=== PATIENT | female | born 1995 | race African-American/Black ===

== ENCOUNTER 2016-11-07 10:59 | Emergency (ER) | payer OTHER ==
[2016-11-07] MEDS ORDERED: GENTAMICIN 0.3% OPHTH SOL 5 ML BTL As Ordered ONE (11:53)
[2016-11-07] MEDS ORDERED: AUGMENTIN 875 MG TAB As Ordered ONE (11:53)
[2016-11-07] MEDS ORDERED: IBUPROFEN 800 MG TAB As Ordered ONE (11:54)
--- NOTE | 2016-11-07 12:19 | EDDOCDS ---
Physician Documentation [facility] Name: Margo Burnham Age: 20 yrs Sex: Female : 1995 Arrival Date: 11/07/2016 Time: 10:59 Bed TR3 Private MD: Disposition: 11/07/16 12:03 Discharged to Home/Self Care. Impression: Acute sinusitis, Hordeolum internum left upper eyelid. - Condition is Stable. - Discharge Instructions: Stye, Sinusitis, [id number]. - Prescriptions for Augmentin 875- 125 mg Oral Tablet - take 1 tablet by ORAL route every 12 hours for 10 days; 20 tablet. Ibuprofen 800 mg Oral Tablet - take 1 tablet by ORAL route every 8 hours As needed take with food; 30 tablet. Claritin 10 mg Oral Tablet - take 1 tablet by ORAL route once daily As needed; 30 tablet. Gentamicin 0.3 % Ophthalmic Drops - instill 2 drops by OPHTHALMIC route every 4 hours Apply to Left eye; 1 bottle. Mucinex 600 mg - take 1 tablet by ORAL route 2 times per day; 30 tablet. - Medication Reconciliation, Local Pharmacy Hours form. - Follow up: [facility] [place]; When: 1 - 2 days; Reason: Recheck today's complaints, Continuance of care. Follow up: Emergency Department; Reason: Worsening of conditions. - Problem is new. - Symptoms have improved. Historical: - Allergies: no known allergies; - Home Meds: 1. none - PMHx: none; - PSHx: none; - Social history: Smoking status: Patient states was never smoker of tobacco. No barriers to communication noted, The patient speaks fluent [place], Speaks appropriately for age. - Family history: Not pertinent. - : The pt / caregiver states he / she is not on anticoagulants. Home medication list is obtained from the patient. - Exposure Risk Screening:: None identified. 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 2 in. (157.48 cm); Pain 0/10; 11:01 Body Mass Index 23.78 (58.97 kg, 157.48 cm) jlf MDM: 11:52 Gentamicin Drops 0.3 % 2 drps Ophthalmic once; Left eye please ordered. ef1 11:52 Amoxicillin-Clavulanate 875 mg 1 tabs PO once ordered. ef1 11:52 Ibuprofen 800 mg PO once ordered. ef1 12:05 Financial registration complete. mpb 12:06 [facility] Payment Agreement was scanned into [employer] and attached to record. mpb Administered Medications: 11:55 Drug: Amoxicillin-Clavulanate 1 tabs [amoxicillin 875 mg-potassium clavulanate 125 mg kr3 tablet (1 tabs)] Route: PO; 11:56 Drug: Ibuprofen 800 mg [ibuprofen 800 mg tablet (1 tabs)] Route: PO; kr3 12:17 Drug: Gentamicin 2 drps [gentamicin 0.3 % eye drops (2 drps)] Route: Ophthalmic; Site: kr3 left eye; Signatures: Yenni Montague RN RN srm Svetlana Herrera RN RN kr3 Kathy Jones, PA-Piper PA-C ef1 Horacio Vincent, Félix Reg mpb The chart was reviewed and I authenticate all verbal orders and agree with the evaluation and treatment provided.Attachments: 12:06 [facility] Payment Agreement mpb MTDD
--- NOTE | 2016-11-07 12:19 | EDDOCDS ---
Nurse's Notes [facility] Name: Margo Burnham Age: 20 yrs Sex: Female : 1995 Arrival Date: 11/07/2016 Time: 10:59 Bed TR3 Private MD: Diagnosis: Acute sinusitis;Hordeolum internum left upper eyelid Presentation: 11/07 11:02 Presenting complaint: Patient states: swelling to left eye started yesterday. has a srm little pain to it. no vision changes. no change in foods, detergent, or soaps. just got in from the field. Mechanism of Injury: No Mechanism of Injury. The patient denies any loss of vision. Adult Sepsis Screening: The patient does not have new or worsening altered mentation. Patient's respiratory rate is less than 22. Systolic blood pressure is greater than 100. Patient has a qSOFA score of 0- Negative Sepsis Screen. Suicide/Homicide risk assessment- the patient denies having any suicidal and/or homicidal ideations and does not present with any other emotional, behavioral or mental health complaints. 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 Transition of care: patient was not received from another setting of care. 11:02 Acuity: MICAH Level 4 srm 11:02 Method Of Arrival: Walkin/Carried/Asstd srm Triage Assessment: 11:04 General: Appears in no apparent distress, Behavior is appropriate for age, cooperative. srm Pain: Pain currently is 4 out of 10 on a pain scale. Pt Declines HIV testing. EENT: swelling to left eye lid. 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 none - PMHx: none; - PSHx: none; - Social history: Smoking status: Patient states was never smoker of tobacco. No barriers to communication noted, The patient speaks fluent Luxembourgish, Speaks appropriately for age. - Family history: Not pertinent. - : The pt / caregiver states he / she is not on anticoagulants. Home medication list is obtained from the patient. - Exposure Risk Screening:: None identified. Screenin:18 Screening information is obtained from the patient. Fall risk: No risks identified. kr3 Assistance ADL's: requires no assistance with activities of daily living. Abuse/DV Screen: The patient / caregiver reports he/she is: not in a situation that causes fear, pain or injury. Nutritional screening: No deficits noted. Advance Directives: Currently, there is no health care proxy. home support is adequate. Assessment: 12:18 General: Appears in no apparent distress, comfortable, Behavior is appropriate for age, kr3 cooperative. Respiratory: Respiratory effort is even, unlabored. Derm: Skin is normal. Vital Signs: 11:01 BP 116 / 55; Pulse 79; Resp 18; Temp 97.2; Pulse Ox 100% ; Weight 58.97 kg; Height 5 [facility] ft. 2 in. (157.48 cm); Pain 0/10; 11:01 Body Mass Index 23.78 (58.97 kg, 157.48 cm) [facility] Vitals: 11:01 Log In Time: November 07, 2016 at 10:56. [facility] ED Course: 11:00 Patient visited by Mejia Lau PCA. jlf 11:00 Patient moved to Waiting jl 11:02 Patient visited by Mejia Lau PCA. jlf 11:02 Patient moved to Pre RCE jlf 11:04 Triage Initiated srm 11:36 Patient moved to Triage 3 sew 11:38 Kathy Jones [facility]-C [facility]. ef1 11:38 Siena Fuentes MD is Attending Physician. ef1 11:43 Patient visited by Kathy Jones PA-C. ef1 11:54 Patient name changed from Dove\S\\S\Chacha\S\ to Dove\S\ \S\Chacha. EDMS 11:58 Patient name changed from Dove\S\ \S\Chacha\S\ to Dove\S\Samedrianas\S\Chacha. EDMS 12:03 Rosey Ramirez [facility] is Referral Physician. ef1 12:06 [facility] Payment Agreement was scanned into [employer] and attached to record. mpb 12:18 Patient moved to TR3 jf3 12:18 No IV's were initiated during this patient's visit. No procedures done that require kr3 assistance. 12:19 The patient / caregiver is instructed regarding the plan of care and ED course. kr3 Administered Medications: 11:55 Drug: Amoxicillin-Clavulanate 1 tabs [amoxicillin 875 mg-potassium clavulanate 125 mg kr3 tablet (1 tabs)] Route: PO; 11:56 Drug: Ibuprofen 800 mg [ibuprofen 800 mg tablet (1 tabs)] Route: PO; kr3 12:17 Drug: Gentamicin 2 drps [gentamicin 0.3 % eye drops (2 drps)] Route: Ophthalmic; Site: kr3 left eye; Order Results: There are currently no results for this order. Outcome: 12:03 Discharge ordered by Provider. ef1 12:18 Discharge Assessment: patient administered narcotics - no. The following High Risk kr3 Discharge criteria are identified: None. Discharged to home ambulatory. Condition: stable. Discharge instructions given to patient, Instructed on discharge instructions, follow up and referral plans. medication usage, Demonstrated understanding of instructions, medications, Pt was receptive of discharge instructions/ teaching. Prescriptions given X 4. No special radiology studies were completed. Property sent home with patient. 12:19 Patient left the ED. kr3 Signatures: Dispatcher [employer] EDMS Yenni Montague, RN RN [facility] Svetlana HerreraRN RN kr3 Kathy Jones, PA-C PA-C ef1 Siena Meza Jordain, SYBIL DIRECTOR CARDIOLOGY Jorge Aguilar,MAEGAN RN jf3 Horacio Vincent, Reg Reg mpb MTDD
--- NOTE | 2016-11-09 13:19 | EDDOCDS ---
Nurse's Notes [facility] Name: Margo Burnham Age: 20 yrs Sex: Female : 1995 Arrival Date: 11/07/2016 Time: 10:59 Bed TR3 Private MD: Diagnosis: Acute sinusitis;Hordeolum internum left upper eyelid Presentation: 11/07 11:02 Presenting complaint: Patient states: swelling to left eye started yesterday. has a srm little pain to it. no vision changes. no change in foods, detergent, or soaps. just got in from the field. Mechanism of Injury: No Mechanism of Injury. The patient denies any loss of vision. Adult Sepsis Screening: The patient does not have new or worsening altered mentation. Patient's respiratory rate is less than 22. Systolic blood pressure is greater than 100. Patient has a qSOFA score of 0- Negative Sepsis Screen. Suicide/Homicide risk assessment- the patient denies having any suicidal and/or homicidal ideations and does not present with any other emotional, behavioral or mental health complaints. 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 Transition of care: patient was not received from another setting of care. 11:02 Acuity: MICAH Level 4 srm 11:02 Method Of Arrival: Walkin/Carried/Asstd srm Triage Assessment: 11:04 General: Appears in no apparent distress, Behavior is appropriate for age, cooperative. srm Pain: Pain currently is 4 out of 10 on a pain scale. Pt Declines HIV testing. EENT: swelling to left eye lid. 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 none - PMHx: none; - PSHx: none; - Social history: Smoking status: Patient states was never smoker of tobacco. No barriers to communication noted, The patient speaks fluent [place], Speaks appropriately for age. - Family history: Not pertinent. - : The pt / caregiver states he / she is not on anticoagulants. Home medication list is obtained from the patient. - Exposure Risk Screening:: None identified. Screenin:18 Screening information is obtained from the patient. Fall risk: No risks identified. kr3 Assistance ADL's: requires no assistance with activities of daily living. Abuse/DV Screen: The patient / caregiver reports he/she is: not in a situation that causes fear, pain or injury. Nutritional screening: No deficits noted. Advance Directives: Currently, there is no health care proxy. home support is adequate. Assessment: 12:18 General: Appears in no apparent distress, comfortable, Behavior is appropriate for age, kr3 cooperative. Respiratory: Respiratory effort is even, unlabored. Derm: Skin is normal. Vital Signs: 11:01 BP 116 / 55; Pulse 79; Resp 18; Temp 97.2; Pulse Ox 100% ; Weight 58.97 kg; Height 5 [facility] ft. 2 in. (157.48 cm); Pain 0/10; 11:01 Body Mass Index 23.78 (58.97 kg, 157.48 cm) [facility] Vitals: 11: Log In Time: November 07, 2016 at 10:56. [facility] ED Course: 11:00 Patient visited by Mejia Lau PCA. [facility] 11:00 Patient moved to Waiting [facility] 11:02 Patient visited by Mejia Lau PCA. f 11:02 Patient moved to Pre RCE jlf 11:04 Triage Initiated srm 11:36 Patient moved to Triage 3 sew 11:38 [facility] ef1 11:38 Siena Fuentes MD is Attending Physician. ef1 11:43 Patient visited by Kathy Jones PA-C. ef1 11:54 Patient name changed from Dove\S\\S\Chacha\S\ to Dove\S\ \S\Chacha. EDMS 11:58 Patient name changed from Dove\S\ \S\Chacha\S\ to Dove\S\Samedrianas\S\Chacha. EDMS 12:03 Rosey Ramirez [facility] is Referral Physician. ef1 12:06 [facility] Payment Agreement was scanned into [employer] and attached to record. mpb 12:18 Patient moved to TR3 jf3 12:18 No IV's were initiated during this patient's visit. No procedures done that require kr3 assistance. 12:19 The patient / caregiver is instructed regarding the plan of care and ED course. kr3 13:51 T-Sheet-- Draft Copy was scanned into [employer] and attached to record. klr Administered Medications: 11:55 Drug: Amoxicillin-Clavulanate 1 tabs [amoxicillin 875 mg-potassium clavulanate 125 mg kr3 tablet (1 tabs)] Route: PO; 11:56 Drug: Ibuprofen 800 mg [ibuprofen 800 mg tablet (1 tabs)] Route: PO; kr3 12:17 Drug: Gentamicin 2 drps [gentamicin 0.3 % eye drops (2 drps)] Route: Ophthalmic; Site: kr3 left eye; Order Results: There are currently no results for this order. Outcome: 12:03 Discharge ordered by Provider. ef1 12:18 Discharge Assessment: patient administered narcotics - no. The following High Risk kr3 Discharge criteria are identified: None. Discharged to home ambulatory. Condition: stable. Discharge instructions given to patient, Instructed on discharge instructions, follow up and referral plans. medication usage, Demonstrated understanding of instructions, medications, Pt was receptive of discharge instructions/ teaching. Prescriptions given X 4. No special radiology studies were completed. Property sent home with patient. 12:19 Patient left the ED. kr3 Signatures: Dispatcher [employer] EDMS Yenni oMntague, RN RN Svetlana Escobar RN RN kr3 Kathy Jones, PA-C PA-C ef1 Siena Meza Jordain, C JAVA DEVELOPER C JAVA DEVELOPER Jorge Aguilar,MAEGAN RN jf3 Horacio Vincent, Reg Reg Kathy Harry Chart Complete MTDD
--- NOTE | 2016-11-09 13:19 | EDDOCDS ---
Physician Documentation [facility] Name: Margo Burnham Age: 20 yrs Sex: Female : 1995 Arrival Date: 11/07/2016 Time: 10:59 Bed TR3 Private MD: Disposition: 11/07/16 12:03 Discharged to Home/Self Care. Impression: Acute sinusitis, Hordeolum internum left upper eyelid. - Condition is Stable. - Discharge Instructions: Stye, Sinusitis, [id number]. - Prescriptions for Augmentin 875- 125 mg Oral Tablet - take 1 tablet by ORAL route every 12 hours for 10 days; 20 tablet. Ibuprofen 800 mg Oral Tablet - take 1 tablet by ORAL route every 8 hours As needed take with food; 30 tablet. Claritin 10 mg Oral Tablet - take 1 tablet by ORAL route once daily As needed; 30 tablet. Gentamicin 0.3 % Ophthalmic Drops - instill 2 drops by OPHTHALMIC route every 4 hours Apply to Left eye; 1 bottle. Mucinex 600 mg - take 1 tablet by ORAL route 2 times per day; 30 tablet. - Medication Reconciliation, Local Pharmacy Hours form. - Follow up: [facility] [place]; When: 1 - 2 days; Reason: Recheck today's complaints, Continuance of care. Follow up: Emergency Department; Reason: Worsening of conditions. - Problem is new. - Symptoms have improved. Historical: - Allergies: no known allergies; - Home Meds: 1. none - PMHx: none; - PSHx: none; - Social history: Smoking status: Patient states was never smoker of tobacco. No barriers to communication noted, The patient speaks fluent [place], Speaks appropriately for age. - Family history: Not pertinent. - : The pt / caregiver states he / she is not on anticoagulants. Home medication list is obtained from the patient. - Exposure Risk Screening:: None identified. 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 2 in. (157.48 cm); Pain 0/10; 11:01 Body Mass Index 23.78 (58.97 kg, 157.48 cm) jlf MDM: 11:52 Gentamicin Drops 0.3 % 2 drps Ophthalmic once; Left eye please ordered. ef1 11:52 Amoxicillin-Clavulanate 875 mg 1 tabs PO once ordered. ef1 11:52 Ibuprofen 800 mg PO once ordered. ef1 12:05 Financial registration complete. mpb 12:06 [facility] Agreement was scanned into [employer] and attached to record. mpb 13:51 T-Sheet-- Draft Copy was scanned into [employer] and attached to record. klr Administered Medications: 11:55 Drug: Amoxicillin-Clavulanate 1 tabs [amoxicillin 875 mg-potassium clavulanate 125 mg kr3 tablet (1 tabs)] Route: PO; 11:56 Drug: Ibuprofen 800 mg [ibuprofen 800 mg tablet (1 tabs)] Route: PO; kr3 12:17 Drug: Gentamicin 2 drps [gentamicin 0.3 % eye drops (2 drps)] Route: Ophthalmic; Site: [facility] left eye; Signatures: Yenni Montague RN RN [facility] Svetlana Herrera RN RN kr3 Kathy Jones, PA-C PA-C ef1 Horacio Vincent, Reg Reg Kathy Harry klr The chart was reviewed and I authenticate all verbal orders and agree with the evaluation and treatment provided.Attachments: 12:06 [facility] Payment Agreement mpb 13:51 T-Sheet-- Draft Copy klr Chart Complete MTDD
--- NOTE | 2016-11-09 13:19 | EDDOCDS ---
Physician Documentation [facility] Name: Margo Burnham Age: 20 yrs Sex: Female : 1995 Arrival Date: 11/07/2016 Time: 10:59 Bed TR3 Private MD: Disposition: 11/07/16 12:03 Discharged to Home/Self Care. Impression: Acute sinusitis, Hordeolum internum left upper eyelid. - Condition is Stable. - Discharge Instructions: Stye, Sinusitis, [id number]. - Prescriptions for Augmentin 875- 125 mg Oral Tablet - take 1 tablet by ORAL route every 12 hours for 10 days; 20 tablet. Ibuprofen 800 mg Oral Tablet - take 1 tablet by ORAL route every 8 hours As needed take with food; 30 tablet. Claritin 10 mg Oral Tablet - take 1 tablet by ORAL route once daily As needed; 30 tablet. Gentamicin 0.3 % Ophthalmic Drops - instill 2 drops by OPHTHALMIC route every 4 hours Apply to Left eye; 1 bottle. Mucinex 600 mg - take 1 tablet by ORAL route 2 times per day; 30 tablet. - Medication Reconciliation, Local Pharmacy Hours form. - Follow up: [facility] [place]; When: 1 - 2 days; Reason: Recheck today's complaints, Continuance of care. Follow up: Emergency Department; Reason: Worsening of conditions. - Problem is new. - Symptoms have improved. Historical: - Allergies: no known allergies; - Home Meds: 1. none - PMHx: none; - PSHx: none; - Social history: Smoking status: Patient states was never smoker of tobacco. No barriers to communication noted, The patient speaks fluent French, Speaks appropriately for age. - Family history: Not pertinent. - : The pt / caregiver states he / she is not on anticoagulants. Home medication list is obtained from the patient. - Exposure Risk Screening:: None identified. 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 2 in. (157.48 cm); Pain 0/10; 11:01 Body Mass Index 23.78 (58.97 kg, 157.48 cm) jlf MDM: 11:52 Gentamicin Drops 0.3 % 2 drps Ophthalmic once; Left eye please ordered. ef1 11:52 Amoxicillin-Clavulanate 875 mg 1 tabs PO once ordered. ef1 11:52 Ibuprofen 800 mg PO once ordered. ef1 12:05 Financial registration complete. mpb 12:06 [facility] Payment Agreement was scanned into [employer] and attached to record. mpb 13:51 T-Sheet-- Draft Copy was scanned into [employer] and attached to record. klr Administered Medications: 11:55 Drug: Amoxicillin-Clavulanate 1 tabs [amoxicillin 875 mg-potassium clavulanate 125 mg kr3 tablet (1 tabs)] Route: PO; 11:56 Drug: Ibuprofen 800 mg [ibuprofen 800 mg tablet (1 tabs)] Route: PO; kr3 12:17 Drug: Gentamicin 2 drps [gentamicin 0.3 % eye drops (2 drps)] Route: Ophthalmic; Site: [facility] left eye; Signatures: Yenni Montague RN RN [facility] Svetlana Herrera RN RN kr3 Kathy Jones, PA-C PA-C ef1 Horacio Vincent, Reg Reg Kathy Harry klr The chart was reviewed and I authenticate all verbal orders and agree with the evaluation and treatment provided.Attachments: 12:06 [facility] Payment Agreement mpb 13:51 T-Sheet-- Draft Copy klr Chart Complete MTDD
== END 2016-11-07 12:19 | disposition home or self-care (01) ==
LOC: M ED 10:59
DX: J01.90 Acute sinusitis, unspecified (principal); H00.024 Hordeolum internum left upper eyelid

== ENCOUNTER 2017-05-24 18:45 | Emergency (ER) | payer OTHER ==
[~2017-05-24] VITALS: Ht 158.8 cm; Wt 59.1 kg
[2017-05-24 22:01] VITALS: BP 120/69
== END 2017-05-24 22:09 | disposition home or self-care (01) ==
LOC: M ED 18:45
DX: N95.2 Postmenopausal atrophic vaginitis (principal)